=== PATIENT | male | born 1975 | race Caucasian/White ===

== ENCOUNTER 2019-04-01 10:55 | Emergency (ER) | payer OTHER ==
--- NOTE | 2019-04-01 11:01 | ED Physician Documentation ---
PD HPI SKIN - Stated complaint Stated Complaint: BODY RASH - History obtained from History obtained from: Patient - History of Present Illness Timing - onset: How many weeks ago (1) Timing - duration: Weeks (1) Timing - details: Still present Location: RUE, LUE, Other (thighs) Quality / character: Itchy, Burning, Discolored, Vesicular Associated symptoms: No: Fever, Myalgias, N/V/D Contributing factors: Other (He states he was moving furniture and they had bought a new table and he was carrying it out to the moving truck. He states the edges of the wood rubbed on his forearms and were against his thighs briefly. He later in the day noticed some redness and inflammation in those areas. This redness has increased over the last several days and persisted. He has itchiness to the area. He is developed small vesicles in those areas as well. He states that area on the right arm has extended in size somewhat. He has not developed any whole body rash.) Similar symptoms before: Has not had sx before Review of Systems Constitutional: denies: Fever, Chills, Myalgias Nose: denies: Rhinorrhea / runny nose, Congestion Throat: denies: Sore throat Respiratory: denies: Cough GI: denies: Nausea, Vomiting, Diarrhea Skin: reports: Rash Musculoskeletal: denies: Neck pain, Back pain PD PAST MEDICAL HISTORY - Past Medical History Past Medical History: No - Present Medications Home Medications: Ambulatory Orders Medication Instructions Recorded Confirmed RX: Cetirizine [ZyrTEC] 10 mg PO DAILY #15 tablet 04/01/19 RX: Doxycycline Hyclate 100 mg PO BID #14 capsule 04/01/19 RX: Mupirocin 1 applic TP TID #15 g 04/01/19 RX: Triamcinolone 0.1% Cream 1 applic TOP BID #15 g 04/01/19 [Kenalog 0.1% Cream] dexAMETHasone [Decadron] 4 mg PO DAILY #5 tablet 04/01/19 - Allergies Allergies/Adverse Reactions: Allergies Allergy/AdvReac Type Severity Reaction Status Date / Time No Known Drug Allergies Allergy Verified 04/01/19 11:06 PD ED PE NORMAL - Vitals Vital signs reviewed: Yes - General General: Alert and oriented X 3, Well developed/nourished - HEENT HEENT: Pharynx benign - Neck Neck: Supple, no meningeal sign, No adenopathy - Cardiac Cardiac: RRR, No murmur - Respiratory Respiratory: Clear bilaterally - Derm Derm: Normal color, Warm and dry, Other (The patient has several patches of demarcated rash on both forearms and right upper arm along the volar surfaces. He says there is 2 small patches on the inner thighs as well. He has his pants on and I deferred visual exam of those. The several patches on his arms are demarcated with deeper red edging and slightly less red central and pebbly vesicular changes. There is no induration. The edges are not raised. There is no scaliness. There is no drainage at this time.) Results - Vitals Vitals: Vital Signs - 24 hr 04/01/19 11:03 Temperature 36.4 C L Heart Rate 89 Respiratory 19 Rate Blood Pressure 140/103 H O2 Saturation 99 Oxygen O2 Source Room air PD MEDICAL DECISION MAKING - ED course Complexity details: considered differential (He has patches of well-demarcated skin irritation with marked redness at the edges but not raised. The central areas are less red but have vesicular pebbly changes. There is no induration under the skin. There is no drainage at this time. This looks like a contact dermatitis although interestingly it still spreading a little bit. Can try some topical mupirocin as well. It does not look obviously infected at this point. And isolated patch would almost look tinea like would be unusual to have it in the several places that contacted the furniture.), d/w patient Departure - Departure Disposition: 01 Home, Self Care Clinical Impression: Contact dermatitis Qualifiers: Contact dermatitis type: irritant Contact dermatitis trigger: other chemical product Qualified Code(s): L24.5 - Irritant contact dermatitis due to other chemical products Condition: Stable Record reviewed to determine appropriate education?: Yes Instructions: ED Dermatitis Contact Prescriptions: RX: Cetirizine [ZyrTEC] 10 mg PO DAILY #15 tablet dexAMETHasone [Decadron] 4 mg PO DAILY #5 tablet RX: Doxycycline Hyclate 100 mg PO BID #14 capsule RX: Mupirocin 1 applic TP TID #15 g RX: Triamcinolone 0.1% Cream [Kenalog 0.1% Cream] 1 applic TOP BID #15 g Comments: Cleanse the area with soap and water gently to 3 times a day and apply mupirocin antibiotic ointment and triamcinolone steroid cream to the affected areas. Also take oral steroid Decadron for 5 more days. Cetirizine antihistamine daily for the next week or so. Add Benadryl every 6 hours if needed for itchiness. See if this improves well over the next few days. If it continues or worsens over the next couple of days, then add oral doxycycline antibiotic for concern of infection as well. Recheck if still not improving over a couple of days after that. Discharge Date/Time: 04/01/19 12:10
[2019-04-01 11:07] VITALS: BP 140/103
[2019-04-01] MEDS ORDERED: MUPIROCIN 2% OINT 1 GM TOP STA (11:47)
[2019-04-01] MEDS ORDERED: DEXAMETHASONE 10 MG/ML VIAL PO STA (11:47)
[2019-04-01] MEDS ORDERED: CETIRIZINE 10 MG TABLET PO STA (11:47)
[2019-04-01] MEDS ORDERED: CHERRY SYRUP 10 ML UDC PO ONE (11:47)
== END 2019-04-01 12:10 | disposition home or self-care (01) ==
LOC: ED 10:55
DX: L24.5 Irritant contact dermatitis due to other chemical products (principal)
CPT/HCPCS: 99284; A9270